=== PATIENT | female | born 1975 | race African-American/Black ===

== ENCOUNTER 2016-11-07 07:28 | Emergency (ER) | payer MEDICAID ==
[2016-11-07] MEDS ORDERED: NORMAL SALINE 1000 ML 1,000 ML IV ONE (08:21)
[2016-11-07] MEDS ORDERED: DIPHENHYDRAMINE HCL 50 MG/ML VIAL IV ONE (08:21)
[2016-11-07] MEDS ORDERED: PROCHLORPERAZINE EDISYLATE INJ 10 MG/2 ML VIAL IV ONE (08:21)
[2016-11-07] MEDS ORDERED: KETOROLAC TROMETHAMINE INJ/PF 30 MG/1 ML SDV IV ONE (08:21)
--- NOTE | 2016-11-07 08:24 | ER Document Report ---
ED Headache - General Mode of Arrival: Ambulatory Information source: Patient TRAVEL OUTSIDE OF THE [place] IN LAST 30 DAYS: No - HPI Patient complains to provider of: Headache Associated symptoms: Other - see above - General Chief Complaint: Headache Stated Complaint: BAD HEADACHE Notes: Patient is a 40 year old female, with a past medical history including migraines , who presents to the emergency department complaining of a headache. Patient states the headache started a week ago and worsened yesterday. Patient reports that she gets migraines often and has been seeing Dr. Gómez but has not been since he moved offices. Patient reports she takes Topomax and Indomethacin for her migraines. Patient is not on any regular medications. PCP: Dr. Sumner ([facility]) - Related Data Allergies/Adverse Reactions: morphine [Morphine] Allergy (Severe, Verified 11/07/16 07:35) breathing difficulties/hives ibuprofen [From Motrin] Allergy (Intermediate, Verified 11/07/16 07:35) Hives Iodinated Contrast Media - Oral and [IV Dye, Iodine Containing] Allergy ( Intermediate, Verified 11/07/16 07:35) Hives latex Allergy (Intermediate, Verified 11/07/16 07:35) itching mometasone furoate [From Asmanex Twisthaler] Allergy (Intermediate, Verified 07:35) breathing difficulties ipecac [From Asthmatic Paroxysms No.21] Allergy (Verified 11/07/16 07:35) unknown sertraline HCl [From Zoloft] Adverse Reaction (Intermediate, Verified 11/07/16 07:35) VOMITING levofloxacin [From Levaquin] Adverse Reaction (Mild, Verified 11/07/16 07:35) cough diphenhydramine Adverse Reaction (Verified 11/07/16 09:03) Past Medical History - General Information source: Patient - Social History Smoking Status: Current Every Day Smoker Cigarette use (# per day): Yes - 1/4 ppd Family History: Reviewed & Not Pertinent, Arthritis, CAD, CVA, DM, Hyperlipidemia, Hypertension, Malignancy, Thyroid Disfunction Patient has suicidal ideation: No Patient has homicidal ideation: No Pulmonary Medical History: Reports: Hx Asthma - no meds/last hospitalization 2002, Hx Bronchitis, Hx COPD, Hx Pneumonia Neurological Medical History: Reports: Hx Migraine Endocrine Medical History: Reports: Hx Hypothyroidism Malignancy Medical History: Reports: Hx Ovarian Cancer Musculoskeltal Medical History: Reports Hx Arthritis, Reports Hx Musculoskeletal Deformity, Reports Hx Musculoskeletal Trauma Skin Medical History: Reports Hx MRSA Psychiatric Medical History: Reports: Hx Anxiety, Hx Bipolar Disorder, Hx Depression Infectious Medical History: Reports: Hx MRSA Past Surgical History: Reports: Hx Gynecologic Surgery - ovarian CA, Hx Orthopedic Surgery, Hx Tubal Ligation - Immunizations Hx Diphtheria, Pertussis, Tetanus Vaccination: Yes Review of Systems - Review of Systems Constitutional: No symptoms reported EENT: No symptoms reported Cardiovascular: No symptoms reported Respiratory: No symptoms reported Gastrointestinal: No symptoms reported Genitourinary: No symptoms reported Female Genitourinary: No symptoms reported Musculoskeletal: No symptoms reported Skin: No symptoms reported Hematologic/Lymphatic: No symptoms reported Neurological/Psychological: See HPI, Headaches -: Yes All other systems reviewed and negative Physical Exam - Vital signs Interpretation: Normal - General General appearance: Appears well, Alert - HEENT Head: Tenderness - Forehead and temporalis muscles tender to palpation Neck: Posterior cervical chain - muscles tender to palpation - Respiratory Respiratory status: No respiratory distress Chest status: Nontender Breath sounds: Normal Chest palpation: Normal - Cardiovascular Rhythm: Regular Heart sounds: Normal auscultation Murmur: No - Extremities General upper extremity: Normal inspection, Normal ROM, Normal strength General lower extremity: Normal inspection, Normal ROM, Normal strength - Neurological Neuro grossly intact: Yes Cognition: Normal Orientation: AAOx4 [place] Coma Scale Eye Opening: Spontaneous [place] Coma Scale Verbal: Oriented [place] Coma Scale Motor: Obeys Commands [place] Coma Scale Total: 15 Speech: Normal Motor strength normal: LUE, RUE, LLE, RLE - Psychological Associated symptoms: Normal affect, Normal mood - Skin Skin Temperature: Warm Skin Moisture: Dry Skin Color: Normal Course - Re-evaluation Re-evalutation: 11/07/16 10:36 The patient was sleeping. She is awakened for repeat exam. She states she does feel much better. (KYLER LORA) - Vital Signs Vital signs: Temp Pulse Resp BP Pulse Ox 98.0 F 80 14 97/79 L 98 11/07/16 07:36 11/07/16 07:36 11/07/16 07:36 11/07/16 07:36 11/07/16 07:36 Discharge - Discharge Clinical Impression: Tension headache Condition: Stable Disposition: HOME, SELF-CARE Additional Instructions: Tension Headache: Your problem has been diagnosed as muscle tension headache. This very common type of headache occurs because of tightness in the muscles of the head and neck. The cause may be neck or jaw joint problems, but most commonly the cause is emotional stress. The headache may last hours or days. The treatment of uncomplicated tension headaches is rest and pain medication. Often, the newer antiinflammatory pain medications are prescribed, as these also decrease the irritability of the painful tissues. Muscle relaxers , cold packs, or warm packs are sometimes helpful. Anti-anxiety medication or narcotics are sometimes needed temporarily, but are best avoided in the long run. Your doctor has evaluated your headache problem, and finds no evidence of a serious health problem as a cause for the headache. If your headache becomes more severe, or if new symptoms develop (such as fever, stiff neck, vomiting, or decreasing alertness) you should be re-examined by the physician. TAKE THE MEDICATION PRESCRIBED FOR HEADACHES. FOLLOW UP WITH DR. GÓMEZ AT [facility]. RETURN TO THE EMERGENCY ROOM IF ANY NEW OR WORSENING SYMPTOMS. Prescriptions: Indomethacin [Indocin 50 mg Capsule] 50 mg PO Q8 PRN #20 capsule PRN Reason: For Headache Scribe Attestation: 11/07/16 10:39 I personally performed the services described in the documentation, reviewed and edited the documentation which was dictated to the scribe in my presence, and it accurately records my words and actions. (KYLER LORA) Scribe Documentation - Scribe Written by Damien:: damien Luis, 11/07/16, 0829 acting as scribe for :: Stewart
[2016-11-07] MEDS ORDERED: INDOMETHACIN 50 MG CAPSULE PO ONE (09:05)
[2016-11-07] MEDS ORDERED: METOCLOPRAMIDE HCL 10 MG TABLET PO ONE (09:06)
[2016-11-07] MEDS ORDERED: KETOROLAC TROMETHAMINE INJ/PF 30 MG/1 ML SDV IM ONE (09:10)
[2016-11-07] MEDS ORDERED: PROCHLORPERAZINE EDISYLATE INJ 10 MG/2 ML VIAL IM ONE (09:11)
[2016-11-07 10:47] VITALS: BP 131/73
== END 2016-11-07 10:45 | disposition home or self-care (01) ==
LOC: ER 07:28
DX: G44.209 Tension-type headache, unspecified, not intractable (principal); Z79.899 Other long term (current) drug therapy; F17.210 Nicotine dependence, cigarettes, uncomplicated
CPT/HCPCS: 99283; 96372; J3490; J1885; J0780

== ENCOUNTER 2017-01-03 19:29 | Emergency (ER) | payer MEDICAID ==
--- NOTE | 2017-01-03 20:50 | ER Document Report ---
ED Eye Complaint - General Chief Complaint: Redness of Eye Stated Complaint: EYE REDNESS Time Seen by Provider: 01/03/17 20:39 Notes: 41 yo female c/o redness, drainage to right eye x 1 day after using new eye cream TRAVEL OUTSIDE OF THE [place] IN LAST 30 DAYS: No - HPI Onset: Yesterday Eye location: Right Injury: No Quality of pain: Burning - Related Data Allergies/Adverse Reactions: morphine [Morphine] Allergy (Severe, Verified 01/03/17 19:33) breathing difficulties/hives ibuprofen [From Motrin] Allergy (Intermediate, Verified 01/03/17 19:33) Hives Iodinated Contrast- Oral and IV Dye [IV Dye, Iodine Containing] Allergy ( Intermediate, Verified 01/03/17 19:33) Hives latex Allergy (Intermediate, Verified 01/03/17 19:33) itching mometasone furoate [From Asmanex Twisthaler] Allergy (Intermediate, Verified 19:33) breathing difficulties ipecac [From Asthmatic Paroxysms No.21] Allergy (Verified 01/03/17 19:33) unknown sertraline HCl [From Zoloft] Adverse Reaction (Intermediate, Verified 01/03/17 19:33) VOMITING levofloxacin [From Levaquin] Adverse Reaction (Mild, Verified 01/03/17 19:33) cough diphenhydramine Adverse Reaction (Verified 01/03/17 19:33) Past Medical History - General Information source: Patient - Social History Smoking Status: Current Every Day Smoker Chew tobacco use (# tins/day): No Frequency of alcohol use: Occasional Drug Abuse: None Lives with: Family Family History: Reviewed & Not Pertinent, Arthritis, CAD, CVA, DM, Hyperlipidemia, Hypertension, Malignancy, Thyroid Disfunction - Past Medical History Cardiac Medical History: Denies: Hx Atrial Fibrillation, Hx Congestive Heart Failure, Hx Heart Attack , Hx Hypercholesterolemia, Hx Hypertension Pulmonary Medical History: Reports: Hx Asthma - no meds/last hospitalization 2002, Hx Bronchitis, Hx COPD, Hx Pneumonia Neurological Medical History: Reports: Hx Migraine. Denies: Hx Cerebrovascular Accident, Hx Seizures Endocrine Medical History: Reports: Hx Hypothyroidism. Denies: Hx Diabetes Mellitus Type 1, Hx Diabetes Mellitus Type 2 Renal/ Medical History: Denies: Hx Peritoneal Dialysis Malignancy Medical History: Reports: Hx Ovarian Cancer GI Medical History: Denies: Hx Gastroesophageal Reflux Disease, Hx Hepatitis, Hx Hiatal Hernia, Hx Ulcer Musculoskeltal Medical History: Reports Hx Arthritis, Reports Hx Musculoskeletal Deformity, Reports Hx Musculoskeletal Trauma Skin Medical History: Reports Hx MRSA Psychiatric Medical History: Reports: Hx Anxiety, Hx Bipolar Disorder, Hx Depression Infectious Medical History: Reports: Hx MRSA. Denies: Hx Hepatitis Past Surgical History: Reports: Hx Gynecologic Surgery - ovarian CA, Hx Hysterectomy, Hx Orthopedic Surgery, Hx Tubal Ligation. Denies: Hx Mastectomy, Hx Open Heart Surgery, Hx Pacemaker - Immunizations Hx Diphtheria, Pertussis, Tetanus Vaccination: Yes Review of Systems - Review of Systems Constitutional: No symptoms reported EENT: No symptoms reported Cardiovascular: No symptoms reported Respiratory: No symptoms reported Gastrointestinal: No symptoms reported Genitourinary: No symptoms reported Female Genitourinary: No symptoms reported Musculoskeletal: No symptoms reported Skin: No symptoms reported Hematologic/Lymphatic: No symptoms reported Neurological/Psychological: No symptoms reported -: Yes All other systems reviewed and negative Physical Exam - Vital signs Vitals: Temp Pulse Resp BP Pulse Ox 98.0 F 95 16 134/87 H 98 01/03/17 19:35 01/03/17 19:35 01/03/17 19:35 01/03/17 19:35 01/03/17 19:35 Interpretation: Normal - General General appearance: Appears well, Alert - HEENT Head: Normocephalic, Atraumatic Eyes: Normal Conjunctiva: Injected, Purulent discharge Pupils: PERRL Tympanic membrane: Normal Nasal: Normal Mucous membranes: Moist Pharynx: Normal - Respiratory Respiratory status: No respiratory distress Chest status: Nontender Breath sounds: Normal Chest palpation: Normal - Cardiovascular Rhythm: Regular Heart sounds: Normal auscultation Murmur: No - Abdominal Inspection: Normal Distension: No distension Bowel sounds: Normal Tenderness: Nontender Organomegaly: No organomegaly - Back Back: Normal, Nontender - Extremities General upper extremity: Normal inspection, Nontender, Normal color, Normal ROM , Normal temperature General lower extremity: Normal inspection, Nontender, Normal color, Normal ROM , Normal temperature, Normal weight bearing. No: Jesus's sign - Neurological Neuro grossly intact: Yes Cognition: Normal Orientation: AAOx4 [place] Coma Scale Eye Opening: Spontaneous [place] Coma Scale Verbal: Oriented [place] Coma Scale Motor: Obeys Commands [place] Coma Scale Total: 15 Speech: Normal Motor strength normal: LUE, RUE, LLE, RLE Sensory: Normal - Psychological Associated symptoms: Normal affect, Normal mood - Skin Skin Temperature: Warm Skin Moisture: Dry Skin Color: Normal Course - Vital Signs Vital signs: Temp Pulse Resp BP Pulse Ox 98.0 F 95 16 134/87 H 98 01/03/17 19:35 01/03/17 19:35 01/03/17 19:35 01/03/17 19:35 01/03/17 19:35 Discharge - Discharge Clinical Impression: Conjunctivitis Qualifiers: Conjunctivitis type: acute Acute conjunctivitis type: unspecified Laterality: right Qualified Code(s): H10.31 - Unspecified acute conjunctivitis, right eye Instructions: Conjunctivitis ([facility]), Eyedrop Use ([facility]) Additional Instructions: antibiotic drops as prescribed cool compresses to eye follow up primary care if symptoms persist Prescriptions: Polymyxin B Sulf/Trimethoprim [Polytrim Eye Drops] 2 drop OD Q4H #1 bottle Forms: Return to Work
[2017-01-03 21:44] VITALS: BP 128/80
== END 2017-01-03 21:43 | disposition home or self-care (01) ==
LOC: ER 19:29
DX: H10.31 Unspecified acute conjunctivitis, right eye (principal); J44.9 Chronic obstructive pulmonary disease, unspecified; F17.200 Nicotine dependence, unspecified, uncomplicated; Z88.5 Allergy status to narcotic agent; Z88.6 Allergy status to analgesic agent; Z91.041 Radiographic dye allergy status; Z91.040 Latex allergy status; Z88.8 Allergy status to other drugs, medicaments and biological substances; Z85.43 Personal history of malignant neoplasm of ovary; Z86.14 Personal history of Methicillin resistant Staphylococcus aureus infection
CPT/HCPCS: 99282

== ENCOUNTER 2017-08-25 13:21 | Emergency (ER) | payer OTHER, MEDICAID ==
[2017-08-25] MEDS ORDERED: KETOROLAC TROMETHAMINE INJ/PF 30 MG/1 ML SDV IM ONE (14:32)
[2017-08-25] MEDS ORDERED: DIAZEPAM 5 MG TABLET PO ONE (14:32)
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
[2017-08-25 15:09] VITALS: BP 125/82
== END 2017-08-25 15:09 | disposition home or self-care (01) ==
LOC: ER 13:21
DX: S29.012A Strain of muscle and tendon of back wall of thorax, initial encounter (principal); M62.830 Muscle spasm of back; M54.2 Cervicalgia; V43.12XA Car passenger injured in collision with other type car in nontraffic accident, initial encounter; Y92.481 Parking lot as the place of occurrence of the external cause; R03.0 Elevated blood-pressure reading, without diagnosis of hypertension; J44.9 Chronic obstructive pulmonary disease, unspecified; F17.200 Nicotine dependence, unspecified, uncomplicated; Z88.5 Allergy status to narcotic agent; Z91.041 Radiographic dye allergy status; Z88.8 Allergy status to other drugs, medicaments and biological substances; Z91.040 Latex allergy status; Z85.43 Personal history of malignant neoplasm of ovary
CPT/HCPCS: 99283; 96372; J1885

== ENCOUNTER 2017-11-23 21:52 | Emergency (ER) | payer MEDICAID, OTHER ==
[2017-11-23 22:00] VITALS: BP 139/80
--- NOTE | 2017-11-23 23:21 | ER Document Report ---
HPI - HPI Patient complains to provider of: low back pain Onset: Other - chronic intermittent Quality of pain: Achy Pain Level: 4 Context: 42 yo female with hx low backi pain intermittent, worse for a few days. No saddle anesthesia or radiculopahty No fever. No IV drug use. Associated Symptoms: None Exacerbated by: Denies Relieved by: Denies Similar symptoms previously: Yes Recently seen / treated by doctor: No - ROS ROS below otherwise negative: Yes Systems Reviewed and Negative: Yes All other systems reviewed and negative - REPRODUCTIVE LMP: na Past Medical History - General Information source: Patient - Social History Smoking Status: Unknown if Ever Smoked Frequency of alcohol use: None Drug Abuse: None Lives with: Family Family History: Reviewed & Not Pertinent, Arthritis, CAD, CVA, DM, Hyperlipidemia, Hypertension, Malignancy, Thyroid Disfunction Patient has suicidal ideation: No Patient has homicidal ideation: No Pulmonary Medical History: Reports: Hx Asthma - no meds/last hospitalization 2002, Hx Bronchitis, Hx COPD, Hx Pneumonia Neurological Medical History: Reports: Hx Migraine Endocrine Medical History: Reports: Hx Hypothyroidism Renal/ Medical History: Denies: Hx Peritoneal Dialysis Malignancy Medical History: Reports: Hx Ovarian Cancer Musculoskeltal Medical History: Reports Hx Arthritis, Reports Hx Musculoskeletal Deformity, Reports Hx Musculoskeletal Trauma Skin Medical History: Reports Hx MRSA Psychiatric Medical History: Reports: Hx Anxiety, Hx Bipolar Disorder, Hx Depression Infectious Medical History: Reports: Hx MRSA. Denies: Hx Hepatitis Past Surgical History: Reports: Hx Gynecologic Surgery - ovarian CA, Hx Hysterectomy, Hx Orthopedic Surgery, Hx Tubal Ligation - Immunizations Hx Diphtheria, Pertussis, Tetanus Vaccination: Yes Vertical Provider Document - CONSTITUTIONAL Agree With Documented VS: Yes Exam Limitations: No Limitations General Appearance: No Apparent Distress - INFECTION CONTROL TRAVEL OUTSIDE OF THE [place] IN LAST 30 DAYS: No - HEENT HEENT: Normocephalic - NECK Neck: Supple - MUSCULOSKELETAL/EXTREMETIES Musculoskeletal/Extremeties: JUDE MURILLO - NEURO Level of Consciousness: Awake Motor/Sensory: No Motor Deficit, No Sensory Deficit Deep Tendon Reflexes: 2+ - arnaldo ankle and patellar - DERM Integumentary: No Rash Course - Re-evaluation Re-evalutation: 11/23/17 23:47 Patient had Toradol IM which helped relieve the pain quite a bit the last time and she wants it again today - Vital Signs Vital signs: Temp Pulse Resp BP Pulse Ox 97.9 F 68 17 139/80 H 99 11/23/17 21:58 11/23/17 21:58 11/23/17 21:58 11/23/17 21:58 11/23/17 21:58 Discharge - Discharge Clinical Impression: low back pain, Muscle strain Condition: Good Disposition: HOME, SELF-CARE Instructions: Acetaminophen, Toradol Injection ([facility]), Warm Packs ([facility]) Additional Instructions: Warm compress Tylenol up to 4000 mg a day Return to the emergency room any worsening of the symptoms Forms: Return to Work Referrals: DARLENE TAMEZ MD [Primary Care Provider] - Follow up as needed
[2017-11-23] MEDS ORDERED: KETOROLAC TROMETHAMINE 60 MG/2 ML SDV IM ONE (23:37)
== END 2017-11-24 00:04 | disposition home or self-care (01) ==
LOC: ER 21:52
DX: S39.012A Strain of muscle, fascia and tendon of lower back, initial encounter (principal); X58.XXXA Exposure to other specified factors, initial encounter; J44.9 Chronic obstructive pulmonary disease, unspecified
CPT/HCPCS: 99283; 96372; J1885

== ENCOUNTER 2017-12-10 09:35 | Emergency (ER) | payer SELFPAY ==
[2017-12-10 09:42] VITALS: BP 124/83
--- NOTE | 2017-12-10 09:52 | ER Document Report ---
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 She also has terminal dysuria that started yesterday. No abdominal pain, nausea, vomiting, or flank pain. You have or chills. Associated Symptoms: None Exacerbated by: Denies Relieved by: Denies Similar symptoms previously: Yes Recently seen / treated by doctor: No - ROS ROS below otherwise negative: Yes Systems Reviewed and Negative: Yes All other systems reviewed and negative - REPRODUCTIVE Reproductive: DENIES: : Past Medical History - General Information source: Patient - Social History Smoking Status: Current Every Day Smoker Drug Abuse: Marijuana Lives with: Family Family History: Reviewed & Not Pertinent, Arthritis, CAD, CVA, DM, Hyperlipidemia, Hypertension, Malignancy, Thyroid Disfunction Pulmonary Medical History: Reports: Hx Asthma - no meds/last hospitalization 2002, Hx Bronchitis, Hx COPD, Hx Pneumonia Neurological Medical History: Reports: Hx Migraine Endocrine Medical History: Reports: Hx Hypothyroidism Renal/ Medical History: Denies: Hx Peritoneal Dialysis Malignancy Medical History: Reports: Hx Ovarian Cancer Musculoskeltal Medical History: Reports Hx Arthritis, Reports Hx Musculoskeletal Deformity, Reports Hx Musculoskeletal Trauma Skin Medical History: Reports Hx MRSA Psychiatric Medical History: Reports: Hx Anxiety, Hx Bipolar Disorder, Hx Depression Infectious Medical History: Reports: Hx MRSA Past Surgical History: Reports: Hx Gynecologic Surgery - ovarian CA, Hx Hysterectomy, Hx Orthopedic Surgery, Hx Tubal Ligation - Immunizations Hx Diphtheria, Pertussis, Tetanus Vaccination: Yes Vertical Provider Document - CONSTITUTIONAL Agree With Documented VS: Yes Exam Limitations: No Limitations - INFECTION CONTROL TRAVEL OUTSIDE OF THE [place] IN LAST 30 DAYS: No - HEENT HEENT: Normocephalic, Pharyngeal Erythema. negative: Conjuctival Injection - NECK Neck: Supple. negative: Lymphadenopathy-Left, Lymphadenopathy-Right - RESPIRATORY Respiratory: Rhonchi - bilateral changes with cough - CARDIOVASCULAR Cardiovascular: Regular Rate, Regular Rhythm - GI/ABDOMEN Gastrointestinal: Abdomen Soft, Abdomen Non-Tender - BACK Back: negative: CVA Tenderness-Right, CVA Tenderness-Left - MUSCULOSKELETAL/EXTREMETIES Musculoskeletal/Extremeties: JUDE MURILLO - NEURO Level of Consciousness: Awake - DERM Integumentary: No Rash Course - Re-evaluation Re-evalutation: 12/10/17 10:49 Urinalysis shows UTI, will start on Macrobid. Looser and deeper breaths after the nebulizer. Chest x-ray is negative per radiologist. I will start her on some prednisone and inhalers. I also discussed with her quitting smoking. And using masks at work. - Vital Signs Vital signs: Temp Pulse Resp BP Pulse Ox 98.5 F 63 20 124/83 100 12/10/17 09:41 12/10/17 09:41 12/10/17 09:41 12/10/17 09:41 12/10/17 09:41 Discharge - Discharge Clinical Impression: Urinary tract infection, Bronchitis Condition: Good Disposition: HOME, SELF-CARE Instructions: Urinary Tract Infection ([facility]), Nitrofurantoin ([facility]), Inhaled Bronchodilators ([facility]), Steroid Medication, Stop Smoking ([facility]) Additional Instructions: Stop smoking Drink plenty of fluids Macrobid twice a day for a week Urine culture is pending Chest x-ray was negative Return to the emergency room if symptoms worsen Prescriptions: Albuterol Sulfate [Proair HFA Inhalation Aerosol 8.5 gm MDI] 2 puff IH Q3HP PRN #1 [id number].[id number] PRN Reason: Nitrofurantoin/Nitrofuran Mac [Macrobid 100 mg Capsule] 100 mg PO BID #14 capsule Prednisone [Deltasone 20 mg Tablet] 40 mg PO DAILY #8 tablet Forms: Return to Work Referrals: DARLENE TAMEZ MD [Primary Care Provider] - Follow up as needed
[2017-12-10] MEDS ORDERED: ALBUTEROL SULFATE 0.083% NEB 2.5 MG/3 ML AMPUL NEB ONE (09:59)
[2017-12-10] MEDS ORDERED: IPRATROPIUM/ALBUTEROL 0.5-2.5 MG/3 ML AMPUL NEB ONE (09:59)
[2017-12-10 10:12] LABS: APPEARANCE,URINE CLOUDY; BILIRUBIN,URINE NEGATIVE (NEGATIVE); COLOR,URINE YELLOW; GLUCOSE, URINE NEGATIVE (NEGATIVE); KETONES,URINE NEGATIVE (NEGATIVE); LEUKOCYTE ESTERASE,URINE LARGE (NEGATIVE); NITRITE,URINE NEGATIVE (NEGATIVE); PROTEIN,URINE 30 mg/dL (NEGATIVE); URINE SPECIFIC GRAVITY 1.017; UROBILINOGEN,URINE NEGATIVE mg/dL (<2.0)
[2017-12-10] MEDS ORDERED: NITROFURANTOIN MONOHYD/M-CRYST 100 MG CAPSULE PO ONE (10:38)
--- NOTE | 2017-12-10 10:46 | RADIOLOGY REPORT (SQ) ---
EXAM DESCRIPTION: CHEST 2 VIEWS COMPLETED DATE/TIME: 12/10/2017 10:12 am REASON FOR STUDY: cough COMPARISON: CT chest 02/10/2016 AP chest 02/01/2016 EXAM PARAMETERS: NUMBER OF VIEWS: two views TECHNIQUE: Digital Frontal and Lateral radiographic views of the chest acquired. RADIATION DOSE: NA LIMITATIONS: none FINDINGS: LUNGS AND PLEURA: No opacities, masses or pneumothorax. No pleural effusion. MEDIASTINUM AND HILAR STRUCTURES: No masses or contour abnormalities. HEART AND VASCULAR STRUCTURES: Heart normal size. No evidence for failure. BONES: No acute findings. HARDWARE: None in the chest. OTHER: No other significant finding. IMPRESSION: NO ACUTE RADIOGRAPHIC FINDING IN THE CHEST. TECHNICAL DOCUMENTATION: JOB ID: [id number]- All Rights Reserved Reading location - IP/workstation name: [email or web address]
[2017-12-10] MEDS ORDERED: PREDNISONE 20 MG TABLET PO ONE (10:48)
[2017-12-10] MEDS ORDERED: ONDANSETRON 4 MG TAB.RAPDIS PO ONE (10:53)
[2017-12-10] MEDS ORDERED: PHENAZOPYRIDINE HCL 200 MG TABLET PO ONE (10:53)
== END 2017-12-10 11:09 | disposition home or self-care (01) ==
LOC: ER 09:35
DX: N39.0 Urinary tract infection, site not specified (principal); J40 Bronchitis, not specified as acute or chronic; J44.9 Chronic obstructive pulmonary disease, unspecified; R05 Cough; F17.200 Nicotine dependence, unspecified, uncomplicated; F12.10 Cannabis abuse, uncomplicated; Z87.01 Personal history of pneumonia (recurrent)
CPT/HCPCS: 94640 ×2; 99284; 87086; 87088; 81001; 87186; 71046; S0119; J3490; J7512; J7620; J8499

== ENCOUNTER 2018-04-18 14:56 | Emergency (ER) | payer OTHER ==
--- NOTE | 2018-04-18 15:29 | ER Document Report ---
HPI - HPI Pain Level: 5 Notes: Patient is a 42-year-old female with a history of ACL tear to her left knee who presents to the ED complaining of left medial knee pain status post dancing and doing the splits. Patient states that she does have pain with bending and extending her knee. She has not noticed any swelling or bruising otherwise. Pain does not radiate. No other concerns or complaints. Denies any headache, fever, URI, sore throat, chest pain, palpitations, syncope, cough, shortness of breath, wheeze, dyspnea, abdominal pain, nausea/vomiting/diarrhea, urinary retention, dysuria, hematuria, back pain, loss of control of bowel or bladder, numbness/tingling, saddle anesthesia, muscle paralysis/weakness, or rash. - ROS Systems Reviewed and Negative: Yes All other systems reviewed and negative - CONSTITUTIONAL Constitutional: DENIES: Fever, Chills - EENT EENT: DENIES: Sore Throat, Ear Pain, Eye problems - NEURO Neurology: DENIES: Headache, Weakness, Vision blurred, Dizzinesss / Vertigo - CARDIOVASCULAR Cardiovascular: DENIES: Chest pain - RESPIRATORY Respiratory: DENIES: Trouble Breathing, Coughing - GASTROINTESTINAL Gastrointestinal: DENIES: Abdominal Pain, Black / Bloody Stools - URINARY Urinary: DENIES: Dysuria, Urgency, Frequency - REPRODUCTIVE Reproductive: DENIES: : - MUSCULOSKELETAL Musculoskeletal: REPORTS: Extremity pain - left knee Past Medical History - Social History Smoking Status: Never Smoker Chew tobacco use (# tins/day): No Frequency of alcohol use: None Drug Abuse: None Family History: Reviewed & Not Pertinent, Arthritis, CAD, CVA, DM, Hyperlipidemia, Hypertension, Malignancy, Thyroid Disfunction Patient has suicidal ideation: No Patient has homicidal ideation: No - Past Medical History Cardiac Medical History: Denies: Hx Atrial Fibrillation, Hx Congestive Heart Failure, Hx Heart Attack , Hx Hypercholesterolemia, Hx Hypertension Pulmonary Medical History: Reports: Hx Asthma - no meds/last hospitalization 2002, Hx Bronchitis, Hx COPD, Hx Pneumonia Neurological Medical History: Reports: Hx Migraine. Denies: Hx Cerebrovascular Accident, Hx Seizures Endocrine Medical History: Reports: Hx Hypothyroidism. Denies: Hx Diabetes Mellitus Type 1, Hx Diabetes Mellitus Type 2 Renal/ Medical History: Denies: Hx Peritoneal Dialysis Malignancy Medical History: Reports: Hx Ovarian Cancer GI Medical History: Denies: Hx Gastroesophageal Reflux Disease, Hx Hepatitis, Hx Hiatal Hernia, Hx Ulcer Musculoskeletal Medical History: Reports Hx Arthritis, Reports Hx Musculoskeletal Deformity, Reports Hx Musculoskeletal Trauma Skin Medical History: Reports Hx MRSA Psychiatric Medical History: Reports: Hx Anxiety, Hx Bipolar Disorder, Hx Depression Infectious Medical History: Reports: Hx MRSA. Denies: Hx Hepatitis Past Surgical History: Reports: Hx Gynecologic Surgery - ovarian CA, Hx Hysterectomy, Hx Orthopedic Surgery, Hx Tubal Ligation. Denies: Hx Mastectomy, Hx Open Heart Surgery, Hx Pacemaker - Immunizations Hx Diphtheria, Pertussis, Tetanus Vaccination: Yes Vertical Provider Document - CONSTITUTIONAL Agree With Documented VS: Yes Notes: PHYSICAL EXAMINATION: GENERAL: Well-appearing, well-nourished and in no acute distress. LUNGS: Breath sounds clear to auscultation bilaterally and equal. No wheezes rales or rhonchi. HEART: Regular rate and rhythm without murmurs, rubs, gallops. Musculoskeletal: Lt knee: No obvious swelling, ecchymosis, effusion, or deformity. FROM to passive/active and flexion >90 w/o difficulty. Strength 5+/ 5. N/V intact distal. + medial knee tenderness near the joint line. Ligamentous grossly stable, limited exam with larger leg size. Kaela grossly negative. Patellar grind negative. No calf tenderness. Extremities: No cyanosis, clubbing, or edema b/l. Peripheral pulses 2+. Capillary refill less than 3 seconds. Jesus neg b/l. NEUROLOGICAL: Normal speech, limping gait. Normal sensory, motor exams PSYCH: Normal mood, normal affect. SKIN: Warm, Dry, normal turgor, no rashes or lesions noted. - INFECTION CONTROL TRAVEL OUTSIDE OF THE [place] IN LAST 30 DAYS: No Course - Re-evaluation Re-evalutation: 04/18/18 17:30 Patient is an afebrile, well-hydrated, 42-year-old female who presents to the ED with left knee pain which I suspect to be a sprain versus strain. Vitals are acceptable without any significant tachycardia, tachypnea, or hypoxia. PE is otherwise unremarkable for any neurovascular compromise, obvious tendon/ ligament rupture, obvious fracture/dislocation, septic joint. X-ray was unremarkable for any acute pathology. Knee immoblizer and crutches were provided today. Pt wanted toradol so that was given, declined PO meds (pt has had toradol multiple times in the past--verbal report by pt and noted in med history even though reported allergy to ibuprofen..Risk/benefits thoroughly reviewed (rash previously)). Patient is nontoxic-appearing. Patient is able to ambulate and weight-bear although she is limping. No other labs or imaging warranted at this time based on H&P. Conservative measures otherwise for symptoms. Recheck with your PCM in 3-5 days. Consider consult orthopedics. Return to the ED with any worsening/concerning symptoms otherwise as reviewed in discharge. Patient is in agreement. >2hr delay with radiology reading XR prolonged pt's stay. - Vital Signs Vital signs: Temp Pulse Resp BP Pulse Ox 98 F 61 18 112/59 L 100 04/18/18 15:08 04/18/18 15:08 04/18/18 15:08 04/18/18 15:08 04/18/18 15:08 Discharge - Discharge Clinical Impression: Left knee pain Qualifiers: Chronicity: acute Qualified Code(s): M25.562 - Pain in left knee Condition: Stable Disposition: HOME, SELF-CARE Additional Instructions: Rest, Ice, Compression, Elevation Use crutches/splint as directed Tylenol/ibuprofen as needed Light stretches daily Strength exercises as able Moist heat and massage may help F/u with your PCP in 3-5 days for a recheck Schedule an appointment with orthopedics for further evaluation and management Return to the ED with any worsening symptoms and/or development of fever, headache, chest pain, palpitations, syncope, shortness of breath, trouble breathing, abdominal pain, n/v/d, muscle weakness/paralysis, numbness/tingling, swelling, redness, or other worsening symptoms that are concerning to you. Referrals: DARLENE TAMEZ MD [Primary Care Provider] - Follow up as needed [facility] [Provider Group] - Follow up in 3-5 days
[2018-04-18] MEDS ORDERED: KETOROLAC TROMETHAMINE 60 MG/2 ML SDV IM ONE (17:12)
--- NOTE | 2018-04-18 17:33 | RADIOLOGY REPORT (SQ) ---
EXAM DESCRIPTION: KNEE LEFT 4 VIEW COMPLETED DATE/TIME: 04/18/2018 3:39 pm REASON FOR STUDY: left knee pain s/p injury COMPARISON: 11/04/2012. NUMBER OF VIEWS: Four views. TECHNIQUE: AP, lateral, and both oblique radiographic images acquired of the left knee. LIMITATIONS: None. FINDINGS: MINERALIZATION: Normal. BONES: No acute fracture or dislocation. Surgical changes with hardware. No worrisome bone lesions. JOINT: No effusion. SOFT TISSUES: No soft tissue swelling. No radio-opaque foreign body. OTHER: No other significant finding. IMPRESSION: SURGICAL CHANGES WITH HARDWARE. NO RADIOGRAPHIC EVIDENCE OF ACUTE INJURY. TECHNICAL DOCUMENTATION: JOB ID: [id number] 2021 [employer]- All Rights Reserved Reading location - IP/workstation name: [email or web address]
[2018-04-18 17:50] VITALS: BP 114/60
== END 2018-04-18 17:40 | disposition home or self-care (01) ==
LOC: ER 14:56
DX: M25.562 Pain in left knee (principal); E03.9 Hypothyroidism, unspecified; Z86.14 Personal history of Methicillin resistant Staphylococcus aureus infection; Z90.710 Acquired absence of both cervix and uterus
CPT/HCPCS: 99283; 96372; 73564; L1830; J1885

== ENCOUNTER 2018-06-03 20:43 | Emergency (ER) | payer OTHER ==
[2018-06-03] MEDS ORDERED: LIDOCAINE 4% TRANSPARENT DRESSING 5 GM KIT TP ONE (22:06)
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
[2018-06-03] MEDS ORDERED: LIDOCAINE 1% INJ-PF (10 MG/ML) 30 ML SDV INJ ONE (22:07)
[2018-06-03] MEDS ORDERED: ACETAMINOPHEN 325 MG TABLET PO ONE (22:32)
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
[2018-06-03 23:07] VITALS: BP 113/70
== END 2018-06-03 23:07 | disposition home or self-care (01) ==
LOC: ER 20:43
DX: S01.111A Laceration without foreign body of right eyelid and periocular area, initial encounter (principal); Y00.XXXA Assault by blunt object, initial encounter; F10.120 Alcohol abuse with intoxication, uncomplicated; Z88.6 Allergy status to analgesic agent; Z91.040 Latex allergy status
CPT/HCPCS: 99283; 70450; 12011; J3490

== ENCOUNTER 2018-12-01 11:25 | Emergency (ER) | payer SELFPAY ==
[2018-12-01 11:39] VITALS: BP 144/92
--- NOTE | 2018-12-01 12:26 | ER Document Report ---
HPI - HPI Time Seen by Provider: 12/01/18 12:20 Pain Level: 3 Notes: Patient is an otherwise healthy 43-year-old female presented to the emergency department with 24 hours of nausea, vomiting and diarrhea. Patient reports all of her children and grandchildren have had similar symptoms over the last few days. Patient denies any abdominal pain or fever. Patient denies any dysuria, urinary frequency or vaginal discharge. - REPRODUCTIVE Reproductive: DENIES: : Past Medical History - General Information source: Patient - Social History Smoking Status: Never Smoker Frequency of alcohol use: None Drug Abuse: None Family History: Reviewed & Not Pertinent, Arthritis, CAD, CVA, DM, Hyperlipidemia, Hypertension, Malignancy, Thyroid Disfunction - Past Medical History Cardiac Medical History: Denies: Hx Atrial Fibrillation, Hx Congestive Heart Failure, Hx Heart Attack, Hx Hypercholesterolemia, Hx Hypertension Pulmonary Medical History: Reports: Hx Asthma - no meds/last hospitalization 2002, Hx Bronchitis, Hx COPD, Hx Pneumonia Neurological Medical History: Reports: Hx Migraine. Denies: Hx Cerebrovascular Accident, Hx Seizures Endocrine Medical History: Reports: Hx Hypothyroidism. Denies: Hx Diabetes Mellitus Type 1, Hx Diabetes Mellitus Type 2 Renal/ Medical History: Denies: Hx Peritoneal Dialysis Malignancy Medical History: Reports: Hx Ovarian Cancer GI Medical History: Denies: Hx Gastroesophageal Reflux Disease, Hx Hepatitis, Hx Hiatal Hernia, Hx Ulcer Musculoskeletal Medical History: Reports Hx Arthritis, Reports Hx Musculoskeletal Deformity, Reports Hx Musculoskeletal Trauma Skin Medical History: Reports Hx MRSA Psychiatric Medical History: Reports: Hx Anxiety, Hx Bipolar Disorder, Hx Depression Infectious Medical History: Reports: Hx MRSA. Denies: Hx Hepatitis Past Surgical History: Reports: Hx Gynecologic Surgery - ovarian CA, Hx Hysterectomy, Hx Orthopedic Surgery, Hx Tubal Ligation. Denies: Hx Mastectomy, Hx Open Heart Surgery, Hx Pacemaker - Immunizations Hx Diphtheria, Pertussis, Tetanus Vaccination: Yes Vertical Provider Document - CONSTITUTIONAL Notes: PHYSICAL EXAMINATION: GENERAL: Well-appearing, well-nourished and in no acute distress. HEAD: Atraumatic, normocephalic. EYES: Pupils equal round and reactive to light, extraocular movements intact, conjunctiva are normal. ENT: Nares patent, oropharynx clear without exudates. Moist mucous membranes. NECK: Normal range of motion, supple without lymphadenopathy LUNGS: Breath sounds clear to auscultation bilaterally and equal. No wheezes rales or rhonchi. HEART: Regular rate and rhythm without murmurs ABDOMEN: Soft, nontender, nondistended abdomen. No guarding, no rebound. No masses appreciated. Female : deferred Musculoskeletal: Normal range of motion, no pitting or edema. No cyanosis. NEUROLOGICAL: Cranial nerves grossly intact. Normal speech, normal gait. Normal sensory, motor exams PSYCH: Normal mood, normal affect. SKIN: Warm, Dry, normal turgor, no rashes or lesions noted. - INFECTION CONTROL TRAVEL OUTSIDE OF THE [place] IN LAST 30 DAYS: No Course - Re-evaluation Re-evalutation: Patient adamantly denies any work-up today, denies blood work or urine. Patient reports that she knows she just has a "stomach bug". Patient is requesting a prescription for Zofran. Patient's abdomen is soft and nontender. Given the history and the fact that multiple members in her family have had nausea vomiting and diarrhea I do not feel this is unreasonable. Patient is afebrile here today in the emergency department. I did discuss ED return precautions with the patient and she verbalizes understanding and agreement to return if she develops abdominal pain, fever or any other worsening symptoms. - Vital Signs Vital signs: Temp Pulse Resp BP Pulse Ox 97.9 F 74 18 144/92 H 96 12/01/18 11:37 12/01/18 11:37 12/01/18 11:37 12/01/18 11:37 12/01/18 11:37 Discharge - Discharge Clinical Impression: Nausea vomiting and diarrhea Condition: Stable Disposition: HOME, SELF-CARE Additional Instructions: You have been seen in the Emergency Department (ED) today for nausea, vomiting and diarrhea. Your work up today has not shown a clear cause for your symptoms. You have been prescribed Zofran; please use as prescribed as needed for your nausea. Follow up with your doctor as soon as possible regarding today's emergent visit and your symptoms of nausea. Return to the Emergency Department (ED) if you develop abdominal pain, bloody vomiting, bloody diarrhea, if you are unable to tolerate fluids due to vomiting, or if you develop other symptoms that concern you. Prescriptions: Ondansetron [Zofran Odt 4 mg Tablet] 1 - 2 tab PO Q4H PRN #15 tab.rapdis PRN Reason: For Nausea/Vomiting Forms: Return to Work Referrals: DARLENE TAMEZ MD [ACTIVE STAFF] - Follow up as needed
== END 2018-12-01 12:27 | disposition home or self-care (01) ==
LOC: ER 11:25
DX: R11.2 Nausea with vomiting, unspecified (principal); R19.7 Diarrhea, unspecified; J45.909 Unspecified asthma, uncomplicated
CPT/HCPCS: 99283

== ENCOUNTER 2018-12-30 12:28 | Emergency (ER) | payer BC ==
[2018-12-30 12:37] VITALS: BP 127/80
[2018-12-30] MEDS ORDERED: PREDNISONE 20 MG TABLET PO ONE (12:57)
[2018-12-30] MEDS ORDERED: IPRATROPIUM/ALBUTEROL 0.5-2.5 MG/3 ML AMPUL NEB ONE ×2 (12:58→12:59)
--- NOTE | 2018-12-30 13:00 | ER Document Report ---
HPI - HPI Time Seen by Provider: 12/30/18 12:52 Pain Level: Denies Notes: Patient is a 43-year-old female presented to the emergency department chief complaint of cough and "crackling in her chest". She also reports fever x2 days. She states that she has not actually checked her temperature but she is sure she has had a fever. She states that she thinks she has either bronchitis or pneumonia. Patient reports that she also has a history of asthma and has not been able to use her inhaler as she thinks is out of date. - CONSTITUTIONAL Constitutional: REPORTS: Fever. DENIES: Chills - RESPIRATORY Respiratory: REPORTS: Coughing - nonproductive - REPRODUCTIVE Reproductive: DENIES: : Past Medical History - General Information source: Patient - Social History Smoking Status: Current Some Day Smoker Frequency of alcohol use: None Drug Abuse: None Family History: Reviewed & Not Pertinent, Arthritis, CAD, CVA, DM, Hyperlipidemia, Hypertension, Malignancy, Thyroid Disfunction Patient has suicidal ideation: No Patient has homicidal ideation: No - Past Medical History Cardiac Medical History: Denies: Hx Atrial Fibrillation, Hx Congestive Heart Failure, Hx Heart Attack, Hx Hypercholesterolemia, Hx Hypertension Pulmonary Medical History: Reports: Hx Asthma - no meds/last hospitalization 2002, Hx Bronchitis, Hx COPD, Hx Pneumonia Neurological Medical History: Reports: Hx Migraine. Denies: Hx Cerebrovascular Accident, Hx Seizures Endocrine Medical History: Reports: Hx Hypothyroidism. Denies: Hx Diabetes Mellitus Type 1, Hx Diabetes Mellitus Type 2 Renal/ Medical History: Denies: Hx Peritoneal Dialysis Malignancy Medical History: Reports: Hx Ovarian Cancer GI Medical History: Denies: Hx Gastroesophageal Reflux Disease, Hx Hepatitis, Hx Hiatal Hernia, Hx Ulcer Musculoskeletal Medical History: Reports Hx Arthritis, Reports Hx Musculoskeletal Deformity, Reports Hx Musculoskeletal Trauma Skin Medical History: Reports Hx MRSA Psychiatric Medical History: Reports: Hx Anxiety, Hx Bipolar Disorder, Hx Depression Infectious Medical History: Reports: Hx MRSA. Denies: Hx Hepatitis Past Surgical History: Reports: Hx Gynecologic Surgery - ovarian CA, Hx Hysterectomy, Hx Orthopedic Surgery, Hx Tubal Ligation. Denies: Hx Mastectomy, Hx Open Heart Surgery, Hx Pacemaker - Immunizations Hx Diphtheria, Pertussis, Tetanus Vaccination: Yes Vertical Provider Document - CONSTITUTIONAL Notes: PHYSICAL EXAMINATION: GENERAL: Well-appearing, well-nourished and in no acute distress. HEAD: Atraumatic, normocephalic. EYES: Pupils equal round extraocular movements intact, conjunctiva are normal. ENT: Nares patent NECK: Normal range of motion LUNGS: Coarse breath sounds with scattered wheezes throughout, mildly increased work of breathing, no acute respiratory distress. Musculoskeletal: Normal range of motion NEUROLOGICAL: Normal speech, normal gait. PSYCH: Normal mood, normal affect. SKIN: Warm, Dry, normal turgor, no rashes or lesions noted. - INFECTION CONTROL TRAVEL OUTSIDE OF THE [place] IN LAST 30 DAYS: No Course - Re-evaluation Re-evalutation: Chest x-ray is negative for any acute infiltrates, pneumothorax or cardiomegaly. Physical examination is most consistent with acute bronchitis. Patient had improvement of her symptoms after administration of medications here in the emergency department. Patient will be discharged home in stable condition, patient verbalizes understanding and agreement with treatment plan, patient understands ED return precautions. The patient's emergency department workup and current diagnosis were explained to the patient and or family. Follow-up instructions were provided. Medications if prescribed were discussed. Instructions for when to return to the emergency department including specific worrisome symptoms were discussed with the patient and/or family. - Vital Signs Vital signs: Temp Pulse Resp BP Pulse Ox 98.2 F 75 18 127/80 H 96 12/30/18 12:36 12/30/18 12:36 12/30/18 12:36 12/30/18 12:36 12/30/18 12:36 Discharge - Discharge Clinical Impression: Bronchitis Condition: Stable Disposition: HOME, SELF-CARE Additional Instructions: You were seen for symptoms most consistent with bronchitis. This can take up to 12 weeks to fully resolve. This is generally due to a viral infection. Please follow-up with your primary doctor in the next 2-3 days. Return if you develop worsening cough, vomiting, fever >100.4, pass out, begin coughing blood, or have any other symptoms that are concerning to you. Please use the medications prescribed today as directed. Prescriptions: Codeine Phosphate/Guaifenesin [Mar-Cof Cg Liquid] 10 ml PO QHS #100 ml Benzonatate [Tessalon Perles 100 mg Capsule] 100 mg PO Q8HP PRN #20 capsule PRN Reason: Prednisone [Deltasone 20 mg Tablet] 3 tab PO DAILY 5 Days #15 tablet Forms: Return to Work
--- NOTE | 2018-12-30 13:26 | RADIOLOGY REPORT (SQ) ---
EXAM DESCRIPTION: CHEST 2 VIEWS COMPLETED DATE/TIME: 12/30/2018 1:16 pm REASON FOR STUDY: cough, fever COMPARISON: None. EXAM PARAMETERS: NUMBER OF VIEWS: two views TECHNIQUE: Digital Frontal and Lateral radiographic views of the chest acquired. RADIATION DOSE: NA LIMITATIONS: none FINDINGS: LUNGS AND PLEURA: No opacities, masses or pneumothorax. No pleural effusion. MEDIASTINUM AND HILAR STRUCTURES: No masses or contour abnormalities. HEART AND VASCULAR STRUCTURES: Heart normal size. No evidence for failure. BONES: No acute findings. HARDWARE: None in the chest. OTHER: No other significant finding. IMPRESSION: NO ACUTE RADIOGRAPHIC FINDING IN THE CHEST. TECHNICAL DOCUMENTATION: JOB ID: [id number] [employer] All Rights Reserved Reading location - IP/workstation name: [email or web address]
[2018-12-30] MEDS ORDERED: ALBUTEROL SULFATE HFA (90 MCG/PUFF) 8 GM MDI (1 MDI/ER DISP) IH ONE (13:49)
== END 2018-12-30 14:00 | disposition home or self-care (01) ==
LOC: ER 12:28
DX: J45.909 Unspecified asthma, uncomplicated (principal); R05 Cough; R50.9 Fever, unspecified; F17.200 Nicotine dependence, unspecified, uncomplicated
CPT/HCPCS: 94640 ×2; 99283; 71046; J7512; J3490; J7620

== ENCOUNTER 2019-01-01 17:03 | Emergency (ER) | payer BC ==
[2019-01-01 17:10] VITALS: BP 137/89
--- NOTE | 2019-01-01 17:19 | ER Document Report ---
HPI - HPI Time Seen by Provider: 01/01/19 17:11 Pain Level: 2 Notes: Patient is a 43-year-old female with a history of asthma who presents complaining of continued harsh, productive cough over the past 4 days. Patient was here couple days ago, but states she only had 1 day off of work and cannot work when she is coughing like she has. She was sent home on cough medicine, steroids, and an inhaler. Patient states that she does not feel any worse than she was and is able to eat and drink without difficulty. She is urinating normally. Patient states that she is here for a work note. Denies any headache, fever, neck pain, URI, sore throat, chest pain, palpitations, syncope, shortness of breath, dyspnea, abdominal pain, nausea/vomiting/diarrhea, urinary retention, dysuria, hematuria, or rash. - ROS Systems Reviewed and Negative: Yes All other systems reviewed and negative - REPRODUCTIVE Reproductive: DENIES: : Past Medical History - Social History Smoking Status: Unknown if Ever Smoked Family History: Reviewed & Not Pertinent, Arthritis, CAD, CVA, DM, Hyperlipidemia, Hypertension, Malignancy, Thyroid Disfunction - Past Medical History Cardiac Medical History: Denies: Hx Atrial Fibrillation, Hx Congestive Heart Failure, Hx Heart Attack, Hx Hypercholesterolemia, Hx Hypertension Pulmonary Medical History: Reports: Hx Asthma - no meds/last hospitalization 2002, Hx Bronchitis, Hx COPD, Hx Pneumonia Neurological Medical History: Reports: Hx Migraine. Denies: Hx Cerebrovascular Accident, Hx Seizures Endocrine Medical History: Reports: Hx Hypothyroidism. Denies: Hx Diabetes Mellitus Type 1, Hx Diabetes Mellitus Type 2 Renal/ Medical History: Denies: Hx Peritoneal Dialysis Malignancy Medical History: Reports: Hx Ovarian Cancer GI Medical History: Denies: Hx Gastroesophageal Reflux Disease, Hx Hepatitis, Hx Hiatal Hernia, Hx Ulcer Musculoskeletal Medical History: Reports Hx Arthritis, Reports Hx Musculoskeletal Deformity, Reports Hx Musculoskeletal Trauma Skin Medical History: Reports Hx MRSA Psychiatric Medical History: Reports: Hx Anxiety, Hx Bipolar Disorder, Hx Depression Infectious Medical History: Reports: Hx MRSA. Denies: Hx Hepatitis Past Surgical History: Reports: Hx Gynecologic Surgery - ovarian CA, Hx Hysterectomy, Hx Orthopedic Surgery, Hx Tubal Ligation. Denies: Hx Mastectomy, Hx Open Heart Surgery, Hx Pacemaker - Immunizations Hx Diphtheria, Pertussis, Tetanus Vaccination: Yes Vertical Provider Document - CONSTITUTIONAL Agree With Documented VS: Yes Notes: PHYSICAL EXAMINATION: GENERAL: Well-appearing, well-nourished and in no acute distress. A&Ox4. Answers questions appropriately. Moves comfortably w/o notable distress HEAD: Atraumatic, normocephalic. EYES: Pupils equal round and reactive to light, extraocular movements intact, sclera anicteric, conjunctiva are normal. ENT: EAC clear b/l. TM's intact b/l without erythema, fluid, or perforation. Nares patent and without discharge. oropharynx no erythema without exudates. No tonsilar hypertrophy without erythema or exudate. No palatine shift. Uvula midline. No tongue protrusion. No drooling, hoarseness, or airway compromise. Moist mucous membranes. No sinus tenderness. NECK: Normal range of motion, supple without lymphadenopathy. No rigidity/meningismus. LUNGS: Breath sounds clear to auscultation bilaterally and equal. No wheezes rales or rhonchi. No retractions HEART: Regular rate and rhythm without murmurs, rubs, gallops. ABDOMEN: Soft, nontender, nondistended abdomen. No guarding, no rebound. Normal bowel sounds present. No CVA tenderness bilaterally. NEUROLOGICAL: Normal speech, normal gait. PSYCH: Normal mood, normal affect. SKIN: Warm, Dry, normal turgor, no rashes or lesions noted. - INFECTION CONTROL TRAVEL OUTSIDE OF THE [place] IN LAST 30 DAYS: No Course - Re-evaluation Re-evalutation: 01/01/19 17:17 Patient is an afebrile, well-hydrated, 43-year-old female who presents with a cough, suspect viral. Vitals are acceptable without significant tachycardia, tachypnea, or hypoxia. PE is otherwise unremarkable. Patient's lungs are clear to auscultation bilaterally. Patient is nontoxic-appearing and is able to tolerate p.o. without difficulty. She already has steroids, inhaler, and cough medicine for home. Patient presented here for a work note. Patient does have a harsh sounding cough. No further work-up warranted. Low suspicion for any ACS, PE, pneumothorax, pericarditis, dissection, respiratory compromise, severe dehydration, sepsis, meningitis, or other systemic emergent condition at this time. Patient is aware that her condition can change from initial presentation and she needs to monitor symptoms closely and seek medical attention for any acu te changes. Recommend conservative measures for symptoms. Recheck with your PCM in 3-5 days. Return to the ED with any worsening/concerning symptoms otherwise as reviewed in discharge. Patient is in agreement. - Vital Signs Vital signs: Temp Pulse Resp BP Pulse Ox 97.8 F 69 18 137/89 H 98 01/01/19 17:09 01/01/19 17:09 01/01/19 17:09 01/01/19 17:09 01/01/19 17:09 Discharge - Discharge Clinical Impression: Acute bronchitis Qualifiers: Bronchitis organism: unspecified organism Qualified Code(s): J20.9 - Acute bronchitis, unspecified Condition: Stable Disposition: HOME, SELF-CARE Instructions: Bronchitis ([facility]) Additional Instructions: Maintain adequate fluid intake tylenol/ibuprofen as needed alternating every 3 hours for fever/body ache over the counter cold medication as needed for symptoms Humidified air may help Wash your hands regularly Wear a mask when coughing F/u: with your PCM in 3-5 days for a recheck Return to the ED with any fever, altered mental status/behavior, chest pain, palpitations, syncope, headache, neck pain/stiffness, shortness of breath, chest pains, wheezing, drooling, trouble swallowing/breathing, abdominal pain, n/v/d, rash, or worsening/concerning symptoms otherwise. Forms: Return to Work Referrals: [facility] [Provider Group] - Follow up as needed
== END 2019-01-01 17:32 | disposition home or self-care (01) ==
LOC: ER 17:03
DX: J20.9 Acute bronchitis, unspecified (principal); R05 Cough; J45.909 Unspecified asthma, uncomplicated
CPT/HCPCS: 99283

== ENCOUNTER 2019-01-24 20:38 | Emergency (ER) | payer OTHER, BC ==
[2019-01-24 20:52] VITALS: BP 121/75
--- NOTE | 2019-01-24 23:07 | RADIOLOGY REPORT (SQ) ---
EXAM DESCRIPTION: XR LUMBAR SPINE ANTEROPOSTERIOR, LATERAL, AND OBLIQUES COMPLETED DATE/TME: 01/24/2019 21:53 CLINICAL HISTORY: 43 years, Female, bone tenderness, trauma COMPARISON: None. NUMBER OF VIEWS: TECHNIQUE: LIMITATIONS: None. FINDINGS: No fracture or dislocation. Vertebral bodies and disc spaces are normal in height. Mineralization of bone appears normal. IMPRESSION: No fracture or dislocation. copyright 2010 [employer]- All Rights Reserved
[2019-01-25] MEDS ORDERED: CYCLOBENZAPRINE HCL 10 MG TABLET PO ONE (00:06)
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
--- NOTE | 2019-01-25 00:52 | RADIOLOGY REPORT (SQ) ---
EXAM DESCRIPTION: XR HIP 2 OR MORE VIEWS COMPLETED DATE/TME: 01/25/2019 00:05 CLINICAL HISTORY: 43 years, Female, Trauma COMPARISON: None. NUMBER OF VIEWS: Two TECHNIQUE: Two views of the left hip LIMITATIONS: None. FINDINGS: There is no acute fracture or dislocation. No large soft tissue swelling. No radiopaque foreign body. The hip and sacroiliac joints appear intact. IMPRESSION: No acute fracture or dislocation. copyright 2010 [employer]- All Rights Reserved
== END 2019-01-25 00:55 | disposition home or self-care (01) ==
LOC: ER 20:38
DX: S76.012A Strain of muscle, fascia and tendon of left hip, initial encounter (principal); M54.9 Dorsalgia, unspecified; M54.2 Cervicalgia; M54.5 Low back pain; M25.552 Pain in left hip; V87.7XXA Person injured in collision between other specified motor vehicles (traffic), initial encounter; F17.200 Nicotine dependence, unspecified, uncomplicated; J45.909 Unspecified asthma, uncomplicated
CPT/HCPCS: 72110; 99283

== ENCOUNTER → 2019-02-03 | Outpatient (CLI) | payer BC ==
--- NOTE | 2019-02-04 08:16 | RADIOLOGY REPORT (SQ) ---
EXAM DESCRIPTION: MRI LUMBAR SPINE WITHOUT COMPLETED DATE/TIME: 02/03/2019 9:15 pm REASON FOR STUDY: (M54.16)RADICULOPATHY, LUMBAR REGION M54.16 RADICULOPATHY, LUMBAR REGION COMPARISON: None. TECHNIQUE: Sagittal and Axial imaging includes T1, T2, STIR and gradient echo sequences. Coronal T2/ HASTE imaging. LIMITATIONS: None. FINDINGS: VISUALIZED UPPER ABDOMEN: Limited evaluation. No acute or suspicious findings suggested. SEGMENTATION: No transitional anatomy. The lowest well-developed disc space is labeled L5-S1. ALIGNMENT: Anatomic. VERTEBRAE: Intact. BONE MARROW: Normal. No marrow replacement or reactive changes. DISC SIGNAL: Normal. No significant abnormal signal or loss of height. POSTERIOR ELEMENTS: Generally intact. No pars defect evident. HARDWARE: None in the spine. CORD AND CONUS: Normal in size and signal intensity. Conus at the appropriate level. SOFT TISSUES: No aortic aneurysm seen. No bulky retroperitoneal adenopathy or mass. No paraspinal mas s or fluid. L1-L2: No significant spinal stenosis or exit foraminal stenosis. L2-L3: No significant spinal stenosis or exit foraminal stenosis. L3-L4: No significant spinal stenosis or exit foraminal stenosis. L4-L5: There is a focal left lateral disc protrusion which abuts the exiting left nerve root. No tariq tral stenosis. L5-S1: No significant spinal stenosis or exit foraminal stenosis. LOWER THORACIC: Incompletely imaged. No stenosis seen. SACRUM: Visualized upper sacrum intact. OTHER: No other significant findings. IMPRESSION: Focal lateral left disc protrusion at L4-L5 which results in narrowing of the neural for kennedy at results in mass effect on the exiting left nerve root. No other significant findings. TECHNICAL DOCUMENTATION: JOB ID: [id number] [employer]- All Rights Reserved Reading location - IP/workstation name: [email or web address]
== END ==
LOC: RAD 19:47
PROVIDERS: ATTEND Specialist
DX: M51.16 Intervertebral disc disorders with radiculopathy, lumbar region (principal)
CPT/HCPCS: 72148

== ENCOUNTER 2019-07-07 20:42 | Emergency (ER) | payer BC, OTHER ==
[2019-07-07] MEDS ORDERED: KETOROLAC TROMETHAMINE 60 MG/2 ML SDV IM ONE (22:54)
--- NOTE | 2019-07-07 22:56 | ER Document Report ---
ED Medical Screen (RME) - General Chief Complaint: Foot Injury Stated Complaint: POSSIBLE BROKEN FOOT Time Seen by Provider: 07/07/19 22:52 Primary Care Provider: ANEUDY GÓMEZ MD [Primary Care Provider] - Follow up as needed Notes: 43-year-old female presents with left foot pain/injury. Patient states cart fell on it while at work. States pain across the top of the foot. Tenderness to dorsal aspect of midfoot. Patient is able to move her toes. Cap refill less than 2 seconds. Distal pedal pulses 2+. I have greeted and performed a rapid initial assessment of this patient. A comprehensive ED assessment and evaluation of the patient, analysis of test results and completion of the medical decision making process with be conducted by additional ED providers. TRAVEL OUTSIDE OF THE [place] IN LAST 30 DAYS: No - Related Data Allergies/Adverse Reactions: morphine [Morphine] Allergy (Severe, Verified 01/01/19 17:04) breathing difficulties/hives ibuprofen [From Motrin] Allergy (Intermediate, Verified 01/01/19 17:04) Hives Iodinated Contrast Media [IV Dye, Iodine Containing] Allergy (Intermediate, Verified 01/01/19 17:04) Hives latex Allergy (Intermediate, Verified 01/01/19 17:04) itching mometasone furoate [From Asmanex Twisthaler] Allergy (Intermediate, Verified 01/01/19 17:04) breathing difficulties ipecac [From Asthmatic Paroxysms No.21] Allergy (Verified 01/01/19 17:04) unknown sertraline HCl [From Zoloft] Adverse Reaction (Intermediate, Verified 01/01/19 17:04) VOMITING levofloxacin [From Levaquin] Adverse Reaction (Mild, Verified 01/01/19 17:04) cough diphenhydramine Adverse Reaction (Verified 01/01/19 17:04) Past Medical History - Past Medical History Cardiac Medical History: Denies: Hx Atrial Fibrillation, Hx Congestive Heart Failure, Hx Heart Attack, Hx Hypercholesterolemia, Hx Hypertension Pulmonary Medical History: Reports: Hx Asthma - no meds/last hospitalization 2002, Hx Bronchitis, Hx COPD, Hx Pneumonia Neurological Medical History: Reports: Hx Migraine. Denies: Hx Cerebrovascular Accident, Hx Seizures Endocrine Medical History: Reports: Hx Hypothyroidism. Denies: Hx Diabetes Mellitus Type 1, Hx Diabetes Mellitus Type 2 Renal/ Medical History: Denies: Hx Peritoneal Dialysis Malignancy Medical History: Reports: Hx Ovarian Cancer GI Medical History: Denies: Hx Gastroesophageal Reflux Disease, Hx Hepatitis, Hx Hiatal Hernia, Hx Ulcer Musculoskeltal Medical History: Reports Hx Arthritis, Reports Hx Musculoskeletal Deformity, Reports Hx Musculoskeletal Trauma Skin Medical History: Reports Hx MRSA Psychiatric Medical History: Reports: Hx Anxiety, Hx Bipolar Disorder, Hx Depression Infectious Medical History: Reports: Hx MRSA. Denies: Hx Hepatitis Past Surgical History: Reports: Hx Gynecologic Surgery - ovarian CA, Hx Hysterectomy, Hx Orthopedic Surgery, Hx Tubal Ligation. Denies: Hx Mastectomy, Hx Open Heart Surgery, Hx Pacemaker - Immunizations Hx Diphtheria, Pertussis, Tetanus Vaccination: Yes Physical Exam - Vital signs Vitals: Temp Pulse Resp BP Pulse Ox 97.4 F 81 20 129/88 H 99 07/07/19 21:05 07/07/19 21:05 07/07/19 21:05 07/07/19 21:05 07/07/19 21:05 Course - Vital Signs Vital signs: Temp Pulse Resp BP Pulse Ox 97.4 F 81 20 129/88 H 99 07/07/19 21:05 07/07/19 21:05 07/07/19 21:05 07/07/19 21:05 07/07/19 21:05 Doctor's Discharge - Discharge Referrals: ANEUDY GÓMEZ MD [Primary Care Provider] - Follow up as needed
--- NOTE | 2019-07-07 23:50 | RADIOLOGY REPORT (SQ) ---
EXAM DESCRIPTION: X-RAY FOOT THREE OR MORE VIEWS CLINICAL HISTORY: injury/pain COMPARISON: None FINDINGS: AP, lateral and oblique views of the left foot were performed at 2308 hours on 07/07/2019. There is a probable avulsion fracture of the lateral base of the fourth middle phalanx and 2 mm of plantar and lateral subluxation of the fourth proximal interphalangeal joint. There is associated soft tissue swelling. No radiopaque foreign bodies are seen. IMPRESSION: Probable acute traumatic subluxation of the fourth proximal interphalangeal joint with an avulsion fracture off the lateral base of the fourth middle phalanx.
[2019-07-08] MEDS ORDERED: PROMETHAZINE HCL 25 MG TABLET PO ONE (01:54)
[2019-07-08] MEDS ORDERED: OXYCODONE-ACETAMINOPHEN 5-325 MG TABLET PO ONE (01:54)
--- NOTE | 2019-07-08 01:57 | ER Document Report ---
HPI - HPI Time Seen by Provider: 07/07/19 22:52 Pain Level: 5 Context: Patient is a 43-year-old female that comes to the emergency department for chief complaint of injury to the top of the left foot. She states she was at work and a dish rack fell over and landed on the top of her foot. She was wearing shoes at the time. She states the area became swollen and painful and hard to walk on. This happened earlier today. She denies any other injuries or complaints. She states that some years ago she had a fracture and surgery on her left fourth toe as well, she denies pain in that area. Patient denies or any daily medications. - CONSTITUTIONAL Constitutional: DENIES: Fever, Chills - REPRODUCTIVE Reproductive: DENIES: : - DERM Skin Color: Normal Past Medical History - General Information source: Patient - Social History Smoking Status: Current Every Day Smoker Frequency of alcohol use: None Drug Abuse: None Lives with: Family Family History: Reviewed & Not Pertinent, Arthritis, CAD, CVA, DM, Hyperlipidemia, Hypertension, Malignancy, Thyroid Disfunction Patient has suicidal ideation: No Patient has homicidal ideation: No - Past Medical History Cardiac Medical History: Denies: Hx Atrial Fibrillation, Hx Congestive Heart Failure, Hx Heart Attack, Hx Hypercholesterolemia, Hx Hypertension Pulmonary Medical History: Reports: Hx Asthma - no meds/last hospitalization 2002, Hx Bronchitis, Hx COPD, Hx Pneumonia Neurological Medical History: Reports: Hx Migraine. Denies: Hx Cerebrovascular Accident, Hx Seizures Endocrine Medical History: Reports: Hx Hypothyroidism. Denies: Hx Diabetes Mellitus Type 1, Hx Diabetes Mellitus Type 2 Renal/ Medical History: Denies: Hx Peritoneal Dialysis Malignancy Medical History: Reports: Hx Ovarian Cancer GI Medical History: Denies: Hx Gastroesophageal Reflux Disease, Hx Hepatitis, Hx Hiatal Hernia, Hx Ulcer Musculoskeletal Medical History: Reports Hx Arthritis, Reports Hx Musculoskeletal Deformity, Reports Hx Musculoskeletal Trauma Skin Medical History: Reports Hx MRSA Psychiatric Medical History: Reports: Hx Anxiety, Hx Bipolar Disorder, Hx Depression Infectious Medical History: Reports: Hx MRSA. Denies: Hx Hepatitis Past Surgical History: Reports: Hx Gynecologic Surgery - ovarian CA, Hx Hysterectomy, Hx Orthopedic Surgery, Hx Tubal Ligation. Denies: Hx Mastectomy, Hx Open Heart Surgery, Hx Pacemaker - Immunizations Hx Diphtheria, Pertussis, Tetanus Vaccination: Yes Vertical Provider Document - CONSTITUTIONAL General Appearance: WD/WN, No Apparent Distress - INFECTION CONTROL TRAVEL OUTSIDE OF THE [place] IN LAST 30 DAYS: No - HEENT HEENT: Atraumatic, Normocephalic - NECK Neck: Normal Inspection - RESPIRATORY Respiratory: Breath Sounds Normal, No Respiratory Distress - CARDIOVASCULAR Cardiovascular: Regular Rate, Regular Rhythm - GI/ABDOMEN Gastrointestinal: Abdomen Soft, Abdomen Non-Tender. negative: Abdomen Tender - BACK Back: Normal Inspection - MUSCULOSKELETAL/EXTREMETIES Musculoskeletal/Extremeties: MAEW, FROM, Tender - There is tenderness with mild soft tissue swelling over the left foot at the medial dorsal aspect. No open wounds. Nontender toes with small surgical scar over the dorsum of the fourth toe. Normal capillary refill and sensation. Normal ankle, leg exam otherwise. - NEURO Level of Consciousness: Awake, Alert, Appropriate Motor/Sensory: No Motor Deficit, No Sensory Deficit - DERM Integumentary: Warm, Dry, No Rash Course - Re-evaluation Re-evalutation: X-ray shows fracture at the fourth phalanx of the foot on the left. I did review this as well. However on evaluating patient patient has a completely nontender foot in this area, her toe is completely unremarkable, there is an old dorsal scar over the area and patient states that she had fractured this badly and had repair and it has not hurt or given her any trouble recently. In addition to this she did not get the injury there, injury was much more proximal and on the other side where the equipment fell and hit her foot. She has very mild swelling over that area. Given this I suspect the fracture is old and there is no new fracture. Patient was very satisfied with this. She was provided with crutches after discussion of options, provided with work release on request, discussed follow-up and return precautions. Patient states appreciation and agreement. - Vital Signs Vital signs: Temp Pulse Resp BP Pulse Ox 97.4 F 81 20 129/88 H 99 07/07/19 21:05 07/07/19 21:05 07/07/19 21:05 07/07/19 21:05 07/07/19 21:05 - Diagnostic Test Radiology reviewed: Image reviewed, Reports reviewed Discharge - Discharge Clinical Impression: Injury of left foot Qualifiers: Encounter type: initial encounter Qualified Code(s): S99.922A - Unspecified injury of left foot, initial encounter Condition: Stable Disposition: HOME, SELF-CARE Additional Instructions: Your evaluation shows soft tissue swelling only but no fracture or concerning finding is seen. Use the crutches for the first 2 to 3 days if needed, elevate your foot, ice 3-4 times a day, take Tylenol for pain. Symptoms should simply resolve with time. Follow-up with primary care. Return if you worsen including severe worsening swelling or pain. Forms: Return to Work
[2019-07-08 02:13] VITALS: BP 130/80
== END 2019-07-08 02:11 | disposition home or self-care (01) ==
LOC: ER 20:42
DX: S99.922A Unspecified injury of left foot, initial encounter (principal); W20.8XXA Other cause of strike by thrown, projected or falling object, initial encounter; Y99.0 Civilian activity done for income or pay; F17.200 Nicotine dependence, unspecified, uncomplicated; J45.909 Unspecified asthma, uncomplicated
CPT/HCPCS: 99283; 96372; 73630; J1885

== ENCOUNTER 2020-01-18 12:10 | Emergency (ER) | payer BC, OTHER ==
--- NOTE | 2020-01-18 13:35 | ER Document Report ---
ED Medical Screen (RME) - General Chief Complaint: Chest Pain Stated Complaint: LEFT BODY PAIN Time Seen by Provider: 01/18/20 13:30 Mode of Arrival: Ambulatory Information source: Patient Notes: 44-year-old female presented to ED for complaint of pain to the left chest down to the lower chest upper abdomen up to the left neck for several days. She does have a history of atrial fib and a heart murmur. He has a history of high blood pressure but is not on her medicine at this time she also has a history of ovarian cancer. I have greeted and performed a rapid initial assessment of this patient. A comprehensive ED assessment and evaluation of the patient, analysis of test results and completion of medical decision making process will be conducted by an additional ED providers. TRAVEL OUTSIDE OF THE [place] IN LAST 30 DAYS: No - Related Data Allergies/Adverse Reactions: morphine [Morphine] Allergy (Severe, Verified 01/01/19 17:04) breathing difficulties/hives ibuprofen [From Motrin] Allergy (Intermediate, Verified 01/01/19 17:04) Hives Iodinated Contrast Media [IV Dye, Iodine Containing] Allergy (Intermediate, Verified 01/01/19 17:04) Hives latex Allergy (Intermediate, Verified 01/01/19 17:04) itching mometasone furoate [From Asmanex Twisthaler] Allergy (Intermediate, Verified 01/01/19 17:04) breathing difficulties ipecac [From Asthmatic Paroxysms No.21] Allergy (Verified 01/01/19 17:04) unknown sertraline HCl [From Zoloft] Adverse Reaction (Intermediate, Verified 01/01/19 17:04) VOMITING levofloxacin [From Levaquin] Adverse Reaction (Mild, Verified 01/01/19 17:04) cough diphenhydramine Adverse Reaction (Verified 01/01/19 17:04) Past Medical History - Past Medical History Cardiac Medical History: Denies: Hx Atrial Fibrillation, Hx Congestive Heart Failure, Hx Heart Attack, Hx Hypercholesterolemia, Hx Hypertension Pulmonary Medical History: Reports: Hx Asthma - no meds/last hospitalization 2002, Hx Bronchitis, Hx COPD, Hx Pneumonia Neurological Medical History: Reports: Hx Migraine. Denies: Hx Cerebrovascular Accident, Hx Seizures Endocrine Medical History: Reports: Hx Hypothyroidism. Denies: Hx Diabetes Mellitus Type 1, Hx Diabetes Mellitus Type 2 Renal/ Medical History: Denies: Hx Peritoneal Dialysis Malignancy Medical History: Reports: Hx Ovarian Cancer GI Medical History: Denies: Hx Gastroesophageal Reflux Disease, Hx Hepatitis, Hx Hiatal Hernia, Hx Ulcer Musculoskeltal Medical History: Reports Hx Arthritis, Reports Hx Musculoskeletal Deformity, Reports Hx Musculoskeletal Trauma Skin Medical History: Reports Hx MRSA Psychiatric Medical History: Reports: Hx Anxiety, Hx Bipolar Disorder, Hx Depression Infectious Medical History: Reports: Hx MRSA. Denies: Hx Hepatitis Past Surgical History: Reports: Hx Gynecologic Surgery - ovarian CA, Hx Hysterectomy, Hx Orthopedic Surgery, Hx Tubal Ligation. Denies: Hx Mastectomy, Hx Open Heart Surgery, Hx Pacemaker - Immunizations Hx Diphtheria, Pertussis, Tetanus Vaccination: Yes Physical Exam - Vital signs Vitals: Temp Pulse Resp BP Pulse Ox 98.5 F 63 19 144/77 H 99 01/18/20 12:57 01/18/20 12:57 01/18/20 12:57 01/18/20 12:57 01/18/20 12:57 Course - Vital Signs Vital signs: Temp Pulse Resp BP Pulse Ox 98.5 F 63 19 144/77 H 99 01/18/20 12:57 01/18/20 12:57 01/18/20 12:57 01/18/20 12:57 01/18/20 12:57
[2020-01-18 14:29] LABS: ABSOLUTE EOSINOPHILS # (AUTO) 0.1 10^3/uL (0.0-0.6); ABSOLUTE MONOCYTES (AUTO) 0.5 10^3/uL (0.1-1.4); ABSOLUTE NEUT (AUTO) 2.8 10^3/uL (1.7-8.2); BASOPHILS % (AUTO) 0.4 % (0-2); EOSINOPHILS % (AUTO) 1.3 % (0-6); HEMATOCRIT 39.9 % (36.0-47.0); HEMOGLOBIN 13.4 g/dL (12.0-15.5); LYMPHOCYTES % (AUTO) 46.6 % (13-45); MEAN CORPUSCULAR HEMOGLOBIN 32.4 pg (27.0-33.4); MEAN CORPUSCULAR HGB CONC 33.6 g/dL (32.0-36.0); MEAN CORPUSCULAR VOLUME 96 fl (80-97); MONOCYTES % (AUTO) 8.3 % (3-13); PLATELET COUNT 256 10^3/uL (150-450); RED BLOOD COUNT 4.14 10^6/uL (3.72-5.28); RED CELL DISTRIBUTION WIDTH 16.8 % (11.5-14.0); SEGMENTED NEUTROPHILS % (AUTO) 43.4 % (42-78); WHITE BLOOD COUNT 6.4 10^3/uL (4.0-10.5)
--- NOTE | 2020-01-18 14:31 | RADIOLOGY REPORT (SQ) ---
EXAM DESCRIPTION: CHEST 2 VIEWS IMAGES COMPLETED DATE/TIME: 01/18/2020 2:18 pm REASON FOR STUDY: Chest pain radiates to neck and abdomen COMPARISON: 12/30/2018 EXAM PARAMETERS: NUMBER OF VIEWS: two views TECHNIQUE: Digital Frontal and Lateral radiographic views of the chest acquired. RADIATION DOSE: NA LIMITATIONS: none FINDINGS: LUNGS AND PLEURA: No opacities, masses or pneumothorax. No pleural effusion. MEDIASTINUM AND HILAR STRUCTURES: No masses or contour abnormalities. HEART AND VASCULAR STRUCTURES: Heart normal size. No evidence for failure. BONES: No acute findings. HARDWARE: None in the chest. OTHER: No other significant finding. IMPRESSION: NO ACUTE RADIOGRAPHIC FINDING IN THE CHEST. TECHNICAL DOCUMENTATION: JOB ID: [id number] 2010 [employer]- All Rights Reserved Reading location - IP/workstation name: [email or web address]
[2020-01-18 14:34] LABS: INTERNATIONAL RATION (INR) 0.91; PROTHROMBIN TIME 12.5 SEC (11.4-15.4)
[2020-01-18 14:35] LABS: PARTIAL THROMBOPLASTIN TIME 26.5 SEC (23.5-35.8)
[2020-01-18 14:45] LABS: TOTAL CELLS COUNTED % (AUTO) 100 %
[2020-01-18 14:48] LABS: BLOOD UREA NITROGEN 13 mg/dL (7-20); CALCIUM 9.5 mg/dL (8.4-10.2); POTASSIUM 4.6 mmol/L (3.6-5.0)
[2020-01-18 14:57] LABS: ALBUMIN 4.3 g/dL (3.5-5.0); ALKALINE PHOSPHATASE 113 U/L (38-126); ASPARTATE AMINO TRANSFERASE 29 U/L (14-36); BILIRUBIN,TOTAL 0.7 mg/dL (0.2-1.3); CARBON DIOXIDE 25 mmol/L (22-30); CREATINE KINASE 234 U/L (30-135); GLUCOSE 92 mg/dL (75-110); TOTAL PROTEIN 7.7 g/dL (6.3-8.2)
[2020-01-18 15:02] LABS: CHLORIDE 105 mmol/L (98-107)
[2020-01-18 15:04] LABS: ANION GAP 6 (5-19)
[2020-01-18 15:06] LABS: ANISOCYTOSIS 1+; BURR CELLS 2+; PLATELET COMMENT ADEQUATE; POIKILOCYTOSIS 1+; TEAR DROP CELLS 1+
[2020-01-18] MEDS ORDERED: HYDROCODONE/ACETAMINOPHEN 5-325 MG TABLET PO ONE (19:47)
[2020-01-18] MEDS ORDERED: HYDROCODONE/ACETAMINOPHEN 5-325 MG (6 TAB/ER DISP) PO PRN (19:47)
--- NOTE | 2020-01-18 19:53 | ER Document Report ---
Entered by HALIMA WANG SCRIBE 01/18/201934 Acting as scribe for:ADAN GRESHAM DO ED General - General Chief Complaint: Neck Pain < 24hrs old Stated Complaint: LEFT BODY PAIN Time Seen by Provider: 01/18/20 13:30 Mode of Arrival: Ambulatory Information source: Patient TRAVEL OUTSIDE OF THE [place] IN LAST 30 DAYS: No - Related Data Allergies/Adverse Reactions: morphine [Morphine] Allergy (Severe, Verified 01/01/19 17:04) breathing difficulties/hives ibuprofen [From Motrin] Allergy (Intermediate, Verified 01/01/19 17:04) Hives Iodinated Contrast Media [IV Dye, Iodine Containing] Allergy (Intermediate, Verified 01/01/19 17:04) Hives latex Allergy (Intermediate, Verified 01/01/19 17:04) itching mometasone furoate [From Asmanex Twisthaler] Allergy (Intermediate, Verified 01/01/19 17:04) breathing difficulties ipecac [From Asthmatic Paroxysms No.21] Allergy (Verified 01/01/19 17:04) unknown sertraline HCl [From Zoloft] Adverse Reaction (Intermediate, Verified 01/01/19 17:04) VOMITING levofloxacin [From Levaquin] Adverse Reaction (Mild, Verified 01/01/19 17:04) cough diphenhydramine Adverse Reaction (Verified 01/01/19 17:04) Past Medical History - General Information source: Patient - Social History Smoking Status: Current Every Day Smoker Chew tobacco use (# tins/day): No Frequency of alcohol use: Occasional Drug Abuse: None Family History: Reviewed & Not Pertinent, Arthritis, CAD, CVA, DM, Hyperlipidemia, Hypertension, Malignancy, Thyroid Disfunction - Past Medical History Cardiac Medical History: Denies: Hx Atrial Fibrillation, Hx Congestive Heart Failure, Hx Heart Attack, Hx Hypercholesterolemia, Hx Hypertension Pulmonary Medical History: Reports: Hx Asthma - no meds/last hospitalization 2002, Hx Bronchitis, Hx COPD, Hx Pneumonia Neurological Medical History: Reports: Hx Migraine. Denies: Hx Cerebrovascular Accident, Hx Seizures Endocrine Medical History: Reports: Hx Hypothyroidism. Denies: Hx Diabetes Mellitus Type 1, Hx Diabetes Mellitus Type 2 Renal/ Medical History: Denies: Hx Peritoneal Dialysis Malignancy Medical History: Reports: Hx Ovarian Cancer GI Medical History: Denies: Hx Gastroesophageal Reflux Disease, Hx Hepatitis, Hx Hiatal Hernia, Hx Ulcer Musculoskeletal Medical History: Reports Hx Arthritis, Reports Hx Musculoskeletal Deformity, Reports Hx Musculoskeletal Trauma Skin Medical History: Reports Hx MRSA Psychiatric Medical History: Reports: Hx Anxiety, Hx Bipolar Disorder, Hx Dep ression Infectious Medical History: Reports: Hx MRSA. Denies: Hx Hepatitis Past Surgical History: Reports: Hx Gynecologic Surgery - ovarian CA, Hx Hy sterectomy, Hx Orthopedic Surgery, Hx Tubal Ligation. Denies: Hx Mastectomy, Hx Open Heart Surgery, Hx Pacemaker - Immunizations Hx Diphtheria, Pertussis, Tetanus Vaccination: Yes Physical Exam - Vital signs Vitals: Temp Pulse Resp BP Pulse Ox 98.5 F 63 19 144/77 H 99 01/18/20 12:57 01/18/20 12:57 01/18/20 12:57 01/18/20 12:57 01/18/20 12:57 Course - Vital Signs Vital signs: Temp Pulse Resp BP Pulse Ox 97.8 F 70 19 140/89 H 100 01/18/20 17:00 01/18/20 17:00 01/18/20 12:57 01/18/20 17:00 01/18/20 17:00 - Laboratory Result Diagrams: 01/18/20 14:09 01/18/20 14:09 Laboratory results interpreted by me: 01/18/20 01/18/20 14:09 14:09 RDW 16.8 H Lymph % (Auto) 46.6 H Sodium 135.8 L Creatine Kinase 234 H - Diagnostic Test Radiology reviewed: Image reviewed, Reports reviewed - EKG Interpretation by Me EKG shows normal: Sinus rhythm Rate: Normal Rhythm: NSR [place]/QRS: Left axis deviation - Sinus Javed Left [place] no st elevation or depression my interpretation Discharge - Discharge Clinical Impression: Left arm pain, Chest wall pain Condition: Stable Disposition: HOME, SELF-CARE Instructions: Chest Wall Pain ([facility]), Oral Narcotic Medication ([facility]), Family Physicians / Practices Additional Instructions: Use ice and take medicine as directed. Please return here for chest pain or shortness of breath or other problems or concerns. Limit lifting to less than 10 pounds for 1 week - until 01/25/20 and then resume regular work. Call your doctor or a referral doctor to discuss physical therapy or further treatment of the left shoulder tendonitis. Forms: Return to Work, Elevated Blood Pressure I personally performed the services described in the documentation, reviewed and edited the documentation which was dictated to the scribe in my presence, and it accurately records my words and actions.
[2020-01-18 20:09] VITALS: BP 110/74
--- NOTE | 2020-01-18 21:08 | ER Document Report ---
Entered by HALIMA WANG SCRIBE 01/18/201955 Acting as scribe for:ADAN GRESHAM DO ED General - General Chief Complaint: Neck Pain < 24hrs old Stated Complaint: LEFT BODY PAIN Time Seen by Provider: 01/18/20 13:30 Mode of Arrival: Ambulatory Information source: Patient Notes: This 44 year old female patient presents to the ED today with complaints of left-sided neck pain that started this morning. Patient states that the pain is sharp in nature and radiates to her left chest and down to her left shoulder and arm. No recent injury. 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 Patient is right hand dominant. Denies any other complaints. TRAVEL OUTSIDE OF THE [place] IN LAST 30 DAYS: No - Related Data Allergies/Adverse Reactions: morphine [Morphine] Allergy (Severe, Verified 01/01/19 17:04) breathing difficulties/hives ibuprofen [From Motrin] Allergy (Intermediate, Verified 01/01/19 17:04) Hives Iodinated Contrast Media [IV Dye, Iodine Containing] Allergy (Intermediate, Verified 01/01/19 17:04) Hives latex Allergy (Intermediate, Verified 01/01/19 17:04) itching mometasone furoate [From Asmanex Twisthaler] Allergy (Intermediate, Verified 01/01/19 17:04) breathing difficulties ipecac [From Asthmatic Paroxysms No.21] Allergy (Verified 01/01/19 17:04) unknown sertraline HCl [From Zoloft] Adverse Reaction (Intermediate, Verified 01/01/19 17:04) VOMITING levofloxacin [From Levaquin] Adverse Reaction (Mild, Verified 01/01/19 17:04) cough diphenhydramine Adverse Reaction (Verified 01/01/19 17:04) Past Medical History - General Information source: Patient - Social History Smoking Status: Current Every Day Smoker Cigarette use (# per day): Yes Chew tobacco use (# tins/day): No Smoking Education Provided: No Frequency of alcohol use: Occasional Drug Abuse: Marijuana Family History: Reviewed & Not Pertinent, Arthritis, CAD, CVA, DM, Hyperlipidemia, Hypertension, Malignancy, Thyroid Disfunction Patient has suicidal ideation: No Patient has homicidal ideation: No Pulmonary Medical History: Reports: Hx Asthma - no meds/last hospitalization 2002, Hx Bronchitis, Hx COPD, Hx Pneumonia Neurological Medical History: Reports: Hx Migraine Endocrine Medical History: Reports: Hx Hypothyroidism Malignancy Medical History: Reports: Hx Ovarian Cancer Musculoskeletal Medical History: Reports Hx Arthritis, Reports Hx Musculoskeletal Deformity, Reports Hx Musculoskeletal Trauma Skin Medical History: Reports Hx MRSA Psychiatric Medical History: Reports: Hx Anxiety, Hx Bipolar Disorder, Hx Depression Infectious Medical History: Reports: Hx MRSA Past Surgical History: Reports: Hx Gynecologic Surgery - ovarian CA, Hx Hysterectomy, Hx Orthopedic Surgery, Hx Tubal Ligation - Immunizations Hx Diphtheria, Pertussis, Tetanus Vaccination: Yes Review of Systems - Review of Systems Constitutional: No symptoms reported EENT: No symptoms reported Cardiovascular: See HPI, Chest pain - reproducible Respiratory: No symptoms reported Gastrointestinal: No symptoms reported Genitourinary: No symptoms reported Female Genitourinary: No symptoms reported Musculoskeletal: See HPI, Joint pain, Muscle pain Skin: No symptoms reported Hematologic/Lymphatic: No symptoms reported Neurological/Psychological: No symptoms reported -: Yes All other systems reviewed and negative Physical Exam - Vital signs Vitals: Temp Pulse Resp BP Pulse Ox 98.5 F 63 19 144/77 H 99 01/18/20 12:57 01/18/20 12:57 01/18/20 12:57 01/18/20 12:57 01/18/20 12:57 - General General appearance: Alert In distress: None - HEENT Head: Normocephalic, Atraumatic Eyes: Normal Extraocular movements intact: Yes Pupils: PERRL - Respiratory Respiratory status: No respiratory distress Chest status: Tender - Palpable and reproducible pain note to left anterior chest wall Breath sounds: Normal Chest palpation: Normal - Cardiovascular Rhythm: Regular Heart sounds: Normal auscultation Murmur: No Friction rub: No Gallop: None auscultated - Abdominal Inspection: Normal Distension: No distension Bowel sounds: Normal Tenderness: Nontender - Abdomen soft Organomegaly: No organomegaly - Back Back: Normal, Nontender - Extremities General lower extremity: Normal inspection Shoulder: Tender - Palpable and reproducible pain noted to left anterior and left lateral shoulder - Neurological Neuro grossly intact: Yes Orientation: AAOx4 Silva Coma Scale Eye Opening: Spontaneous Silva Coma Scale Verbal: Oriented Uriel Coma Scale Motor: Obeys Commands Silva Coma Scale Total: 15 - Psychological Associated symptoms: Normal affect, Normal mood - Skin Skin Temperature: Warm Skin Moisture: Dry Skin Color: Normal Course - Re-evaluation Re-evalutation: 01/18/20 21:52 MDM 44 year old female was sent home from work - 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 Left arm shoulder and chest are ttp. + impingement signs of left shoulder. Wrist and elbow are pain free and nvi. TTP with little palpation to trapezius and left deltoid as well as chest wall left side of sternum. With this constellation of symptoms as well as 2 sets of normal cardiac markers and only mildly elevated BP here, feel she is safe for outpt follow up. Discussed this with her and her sister as well as limited work and she expressed understanding. - Vital Signs Vital signs: Temp Pulse Resp BP Pulse Ox 98.5 F 84 16 110/74 96 01/18/20 20:07 01/18/20 20:07 01/18/20 20:07 01/18/20 20:07 01/18/20 20:07 - Laboratory Result Diagrams: 01/18/20 14:09 01/18/20 14:09 Laboratory results interpreted by me: 01/18/20 01/18/20 14:09 14:09 RDW 16.8 H Lymph % (Auto) 46.6 H Sodium 135.8 L Creatine Kinase 234 H - Diagnostic Test Radiology reviewed: Image reviewed, Reports reviewed - EKG Interpretation by Me EKG shows normal: Sinus rhythm Rate: Normal Rhythm: NSR Transfer/QRS: Left axis deviation - Sinus Javed Left Transfer no st elevation or depression my interpretation Discharge - Discharge Clinical Impression: Left arm pain, Chest wall pain Condition: Stable Disposition: HOME, SELF-CARE Instructions: Chest Wall Pain ([facility]), Family Physicians / Practices, Oral Narcotic Medication ([facility]) Additional Instructions: Use ice and take medicine as directed. Please return here for chest pain or shortness of breath or other problems or concerns. Limit lifting to less than 10 pounds for 1 week - until 01/25/20 and then resume regular work. Call your doctor or a referral doctor to discuss physical therapy or further treatment of the left shoulder tendonitis. Forms: Elevated Blood Pressure, Return to Work I personally performed the services described in the documentation, reviewed and edited the documentation which was dictated to the scribe in my presence, and it accurately records my words and actions.
--- NOTE | 2020-01-20 09:46 | EKG REPORT ---
SEVERITY:- OTHERWISE NORMAL ECG - SINUS BRADYCARDIA : Confirmed by: Gus Sykes MD 20-Jan-2020 09:45:38
== END 2020-01-18 20:06 | disposition home or self-care (01) ==
LOC: ER 12:10
DX: R07.89 Other chest pain (principal); M54.2 Cervicalgia; M25.512 Pain in left shoulder; M79.602 Pain in left arm; M79.10 Myalgia, unspecified site; I10 Essential (primary) hypertension; F17.210 Nicotine dependence, cigarettes, uncomplicated; J44.9 Chronic obstructive pulmonary disease, unspecified; Z85.43 Personal history of malignant neoplasm of ovary; Z88.6 Allergy status to analgesic agent; Z88.5 Allergy status to narcotic agent; Z88.8 Allergy status to other drugs, medicaments and biological substances; Z91.041 Radiographic dye allergy status; Z91.040 Latex allergy status
CPT/HCPCS: 36415; 71046; 80053; 82550; 83735; 84484; 85025; 85610; 85730; 93005; 93010; 99284